=== PATIENT | female | born 1985 | race African-American/Black ===

== ENCOUNTER 2022-09-23 12:11 | Emergency (ER) | payer OTHER ==
[~2022-09-23] VITALS: Ht 170.2 cm; Wt 82.6 kg
--- NOTE | 2022-09-23 12:20 | NUR ---
BIB [address] 83 AND [employer] OFFICERS FROM HOME, MOM CALLED BECAUSE SHE WAS ACTING "ACTING IRRATIONALLY". PLACED ON BED, TALKATIVE, UNCOOPERATIVE, DENIES SI OR HURT OTHERS.
--- NOTE | 2022-09-23 13:00 | NUR ---
GWYN MCLAIN AT BEDSIDE
--- NOTE | 2022-09-23 13:09 | NUR ---
PATIENT REFUSED BLOOD WORKS
--- NOTE | 2022-09-23 14:00 | NUR ---
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
--- NOTE | 2022-09-23 14:01 | NUR ---
ART CRISIS TEAM AT BEDSIDE
[2022-09-23 14:16] LABS: BASOPHILS # (AUTO) 0.1 K/uL (0.0-0.2); BASOPHILS % (AUTO) 0.5 % (0.0-2.0); EOSINOPHILS % (AUTO) 0.2 % (0.0-6.0); HEMATOCRIT 36 % (33-45); HEMOGLOBIN 11.9 g/dL (11.5-14.8); LYMPHOCYTES # (AUTO) 2.7 K/uL (0.8-4.8); LYMPHOCYTES % (AUTO) 21.1 % (20.0-44.0); MEAN CORPUSCULAR HGB CONC 33 g/dl (31.0-36.0); MEAN CORPUSCULAR VOLUME 96 fL (82-100); MONOCYTES # (AUTO) 1.3 K/uL (0.1-1.30); MONOCYTES % (AUTO) 10.2 % (2.0-12.0); NEUTROPHILS # (AUTO) 8.6 K/uL (1.8-8.9); PLATELET COUNT (AUTO) 289 K/uL (150-450); RED BLOOD CELL COUNT(AUTO) 3.77 MIL/uL (4.0-5.2); WHITE BLOOD COUNT (AUTO) 12.7 K/uL (4.3-11.0)
[2022-09-23] MEDS ORDERED: diphenhydrAMINE HCL 50 MG/ML VIAL IV ONE (14:30)
[2022-09-23] MEDS ORDERED: LORAZEPAM INJ 2 MG/ML VIAL IV ONE (14:30)
[2022-09-23 14:38] LABS: ALANINE AMINOTRANSFERASE 16 U/L (12-78); ALBUMIN 4.3 g/dL (3.4-5.0); ALCOHOL, BLOOD < 3 mg/dL (0-0); ALKALINE PHOSPHATASE 56 U/L (46-116); ASPARTATE AMINOTRANSFERASE 24 U/L (15-37); BILIRUBIN,DIRECT 0.2 mg/dL (0.0-0.2); BILIRUBIN,TOTAL 0.8 mg/dL (0.2-1.0); CALCIUM, SERUM 9.5 mg/dL (8.5-10.1); CARBON DIOXIDE 25 mmol/L (21-32); CHLORIDE 101 mmol/L (98-107); CREATININE 0.8 mg/dL (0.6-1.3); GLUCOSE 90 mg/dL (74-106); POTASSIUM 3.7 mmol/L (3.5-5.1); SODIUM SERUM 136 mmol/L (136-145); TOTAL PROTEIN, SERUM 8.5 g/dL (6.4-8.2); UREA NITROGEN, BLOOD 6 mg/dL (7-18)
[2022-09-23 14:43] LABS: ACETAMINOPHEN 0 ug/ml (10-30)
[2022-09-23] MEDS ORDERED: diphenhydrAMINE HCL 50 MG/ML VIAL ONE (14:53)
[2022-09-23] MEDS ORDERED: LORAZEPAM INJ 2 MG/ML VIAL ONE (14:54)
[2022-09-23] MEDS ORDERED: HALOPERIDOL LACTATE INJ 5 MG/ML VIAL ONE (14:54)
[2022-09-23] MEDS: diphenhydrAMINE HCL 50 MG/ML VIAL IM ONE (15:00)
[2022-09-23] MEDS: HALOPERIDOL LACTATE INJ 5 MG/ML VIAL IM ONE (15:00)
[2022-09-23] MEDS: LORAZEPAM INJ 2 MG/ML VIAL IM ONE (15:09)
--- NOTE | 2022-09-23 18:47 | NUR ---
MOTHER GRACE [phone]
--- NOTE | 2022-09-23 18:49 | NUR ---
[facility] [phone]
--- NOTE | 2022-09-23 18:50 | NUR ---
ETA 60 MINS.
--- NOTE | 2022-09-23 23:01 | NUR ---
MOTHER PICKED PT UP
[2022-09-24 04:34] VITALS: BP 132/80
== END 2022-09-23 23:05 | disposition home or self-care (01) ==
LOC: ER 12:14
DX: Z04.6 Encounter for general psychiatric examination, requested by authority (principal); F31.9 Bipolar disorder, unspecified
CPT/HCPCS: 99285; 96372 ×2; 85025; 80048; 80076; 36415; 80143; 80320; J2060; J1200; J1630; G0480